=== PATIENT | female | born 1970 | race African-American/Black ===

== ENCOUNTER 2021-12-05 05:46 | Inpatient (IN) | payer OTHER ==
[2021-12-05 06:34] LABS: Hemoglobin 7.3 g/dL (12.0-16.0); Mean Corpuscular HGB CONC 31.2 g/dL (32.0-36.0); Mean Corpuscular Hemoglobin 35.6 pg (27.0-31.0); Mean Platelet Volume 8.5 fL (7.4-10.4); Platelet Count 348 thou/uL (130-400); RBC Distribution Width 18.3 % (11.5-14.5); Red Blood Cell (RBC) Count 2.06 mill/uL (4.20-5.40)
[2021-12-05 06:36] LABS: pH, Arterial 7.38 (7.35-7.45)
[2021-12-05 06:37] LABS: Actual Bicarbonate (HCO3a) 43.2 mEq/L (22-28); Analyzer IN Cardio ER; Base Excess (BEa) 15.7 mEq/L (-2.0 to +3.0); Calcium, Ionized (arterial) 1.12 mmol/L (1.12-1.30); Carboxyhemoglobin (COHb) 0.6 gm% (0.0-3.0); Hemoglobin (Hb) 8.6 g/dL (12.0-16.0); O2 Tension (PaO2), arterial 68.5 mmHg (80.0-100.0); Potassium - ABG Lab 3.26 mmol/L (3.70-5.30)
[2021-12-05 06:41] LABS: ALV-art Gradient 550.125 mmHg (0-20); CO2 Tension 75.5 mmHg (35.0-45.0); Puncture Site LRA
[2021-12-05] MEDS ORDERED: Acetaminophen 500 MG TAB ONE (06:50)
[2021-12-05 06:51] LABS: ALT (SGPT) 8 U/L (8-55); AST (SGOT) 14 U/L (5-34); Albumin 3.5 g/dL (3.5-5.0); Alkaline Phosphatase 123 U/L (40-110); BUN (Urea Nitrogen) 9 mg/dL (9.8-20.1); Bilirubin, Total 0.7 mg/dL (0.2-1.2); Calc. Creatinine Clearance 0 mL/min (70-130); Calcium 9.7 mg/dL (7.8-10.44); Globulin 5.2 g/dL (2.4-3.5); Glucose 436 mg/dL (70-105); Protein, Total 8.7 g/dL (6.0-8.3)
[2021-12-05 06:52] LABS: Anisocytosis SLIGHT = 6-15 cells (100X) (0-5/hpf); Band 21 % (5-11); Lymphocytes 14 % (21-51); MDiff Complete? YES; Macrocytosis MODERATE=16-30 cells (100X) (0-5/hpf); Monocytes 6 % (0-10); Neutrophil 59 % (42-75); Nucleated RBC 6 % (0); Polychromasia SLIGHT = 2-3 cells (100X) (0-2/hpf); Target Cells MODERATE= 6-15 cells (100X) (0-1/hpf); White Blood Cell (WBC) Count 7.3 thou/uL (4.8-10.8)
[2021-12-05 06:59] LABS: Chloride 82 mmol/L (98-107); Potassium 3.6 mmol/L (3.5-5.1); Sodium 134 mmol/L (136-145)
[2021-12-05 07:00] LABS: Anion Gap 21 mmol/L (10-20); Carbon Dioxide 34 mmol/L (22-29)
[2021-12-05] MEDS ORDERED: Insulin Regular 300 UNITS/3 ML VIAL ONE (07:11)
[2021-12-05] MEDS ORDERED: Vancomycin 1 GM/200 ML BAG ONE (07:11)
[2021-12-05] MEDS ORDERED: Cefepime 2 GM VIAL ONE (07:11)
[2021-12-05] MEDS ORDERED: Dextrose 5% in Water 1,000 ML IV PRN ×2 (07:51→08:50)
[2021-12-05] MEDS ORDERED: HumaLOG 300 UNITS/3 ML VIAL SC PRN ×2 (07:51→08:50)
[2021-12-05] MEDS ORDERED: Dextrose 50% Abboject 50 ML SYRINGE SLOW IVP PRN ×2 (07:51→08:50)
[2021-12-05] MEDS ORDERED: diphenhydrAMINE 50 MG/ML VIAL ONE (08:02)
[2021-12-05] MEDS ORDERED: Ondansetron PF 4 MG/2 ML Vial ONE (08:02)
[2021-12-05 08:03] LABS: Bacteria/HPF 4+ HPF (None Seen); Bilirubin Negative (Negative); Blood, Urine 2+ (Negative); Glucose, Urine (Dipstick) Greater than 1000 mg/dL (Negative); Ketone, Urine Trace mg/dL (Negative); Leukocyte 500 Leu/uL (Negative); Nitrite 2+ (Negative); Protein, Urine (Dipstick) 30 mg/dL (Neg-Trace); Specific Gravity, Urine 1.015 (1.002-1.036); Squamous Epithelial 0-3 HPF (0-3); WBC/HPF Greater than 50 HPF (0-3)
[2021-12-05 08:06] LABS: Clarity Turbid (Clear)
[2021-12-05 08:32] LABS: SARS-CoV-2 NAA Rapid Test Not Detected (NotDetected)
[2021-12-05] MEDS ORDERED: Propofol 1,000 MG/100 ML VIAL IV ONE (08:38)
[2021-12-05] MEDS ORDERED: Norepinephrine 8 MG/0.9% NS 250 ML ONE (08:38)
[2021-12-05] MEDS ORDERED: Midazolam HCl 2 mg/2 ml Vial ONE (08:38)
[2021-12-05 08:44] LABS: INR-International Normal Ratio 1.2; PTT 35.2 sec (22.9-36.1); Prothrombin Time 15.5 sec (12.0-14.7)
[2021-12-05] MEDS ORDERED: Ondansetron PF 4 MG/2 ML Vial IVP PRN (08:50)
[2021-12-05] MEDS ORDERED: Sodium Chloride 0.9% 1,000 ML IV SCH (09:00)
[2021-12-05] MEDS ORDERED: methylPREDNISolone Sod Succ 40 MG VIAL IVP SCH ×3 (09:00→17:00)
[2021-12-05] MEDS ORDERED: Enoxaparin Sodium 40 MG/0.4 ML SYRINGE SC SCH (09:00)
[2021-12-05 09:10] LABS: Actual Bicarbonate (HCO3a) 39.5 mEq/L (22-28); Base Excess (BEa) 12.9 mEq/L (-2.0 to +3.0); CO2 Tension 71.4 mmHg (35.0-45.0); Calcium, Ionized (arterial) 1.12 mmol/L (1.12-1.30); Carboxyhemoglobin (COHb) 1.2 gm% (0.0-3.0); Hemoglobin (Hb) 6.2 g/dL (12.0-16.0); O2 Tension (PaO2), arterial 66.7 mmHg (80.0-100.0); Potassium - ABG Lab 3.44 mmol/L (3.70-5.30); Puncture Site RBA; pH, Arterial 7.36 (7.35-7.45)
[2021-12-05 09:49] VITALS: BMI 33.8
[2021-12-05 10:03] LABS: Hemoglobin A1c 6.7 % (4.0-6.0)
[2021-12-05 10:20] LABS: Troponin I 0.038 ng/mL (< 0.028)
[2021-12-05] MEDS ORDERED: Norepinephrine 8 MG/0.9% NS 250 ML IVPB SCH (10:30)
[2021-12-05] MEDS ORDERED: Vancomycin HCl 1.5 GM in Sodium Chloride 0.9% 250 ML 300 ML IVPB SCH ×2 (11:00→21:00)
[2021-12-05] MEDS ORDERED: Azithromycin 500 MG in Sodium Chloride 0.9% 250 ML 250 ML IVPB SCH (11:00)
[2021-12-05] MEDS: Fentanyl 100 MCG/2 ML VIAL SLOW IVP PRN ×2 (11:18→15:46)
[2021-12-05 13:19] LABS: Troponin I 0.025 ng/mL (< 0.028)
[2021-12-05] MEDS ORDERED: CEFEPIME HCL IN DEXTROSE 5 % 1 GM/50 ML BAG IVPB SCH (15:00)
[2021-12-05] MEDS ORDERED: Cefepime 1 GM in Sodium Chloride 0.9% 100 ML IVPB SCH (15:00)
[2021-12-05] MEDS ORDERED: cefTRIAXone\\ROCEPHIN 2 GM in Sodium Chloride 0.9% 100 ML IVPB SCH (16:00)
[2021-12-05 16:13] LABS: Lactic Acid 3.8 mmol/L (0.5-2.2)
[2021-12-05 17:06] VITALS: TEMP 98.5
== END 2021-12-05 18:27 | disposition short-term general hospital (02) | DRG 811 ==
LOC: ERS 05:46 → SUATTDRO 05:46 → CCU 07:55
PROVIDERS: ADMIT Internal Medicine; ATTEND Internal Medicine
PROC: 5A09357 Assistance with Respiratory Ventilation, Less than 24 Consecutive Hours, Continuous Positive Airway Pressure (ICD-10-PCS; principal; 2021-12-05)
DX: D57.01 Hb-SS disease with acute chest syndrome (principal); J18.9 Pneumonia, unspecified organism; J96.21 Acute and chronic respiratory failure with hypoxia; J96.22 Acute and chronic respiratory failure with hypercapnia; J44.0 Chronic obstructive pulmonary disease with (acute) lower respiratory infection; J44.1 Chronic obstructive pulmonary disease with (acute) exacerbation; Z20.822 Contact with and (suspected) exposure to COVID-19; E11.65 Type 2 diabetes mellitus with hyperglycemia; E66.01 Morbid (severe) obesity due to excess calories; Z99.81 Dependence on supplemental oxygen; Z86.718 Personal history of other venous thrombosis and embolism; Z79.01 Long term (current) use of anticoagulants; Z79.899 Other long term (current) drug therapy; Z90.49 Acquired absence of other specified parts of digestive tract; Z68.33 Body mass index [BMI] 33.0-33.9, adult
CPT/HCPCS: 36416; 36600; 71045; 80053; 81003; 81015; 82010; 82805; 83021; 83036; 83605; 83880; 84145; 84484; 85025; 85046; 85610; 85730; 86850; 86870; 86900; 86901; 87040; 87086; 87149; 93005; 93306; 94640; 94660; J0456; J0692; J1200; J1815; J2250; J2405; J2704; J2920; J3010; J3370; J3490; J7050; J7620; U0002

== ENCOUNTER 2025-08-24 20:01 | Emergency (ER) | payer OTHER ==
[2025-08-24 22:27] LABS: Acetaminophen Less than 10 mcg/mL (Less than 10); Salicylate Less than 8.0 mg/dL (Less than 8.0)
[2025-08-24 22:29] LABS: ALT (SGPT) 8 U/L (Less than 34); AST (SGOT) 32 U/L (11-34); Albumin 2.9 g/dL (3.1-4.5); Alkaline Phosphatase 105 U/L (40-110); Anion Gap 10 mmol/L (10-20); BUN (Urea Nitrogen) 9 mg/dL (9.8-20.1); Bilirubin, Total 0.6 mg/dL (0.3-1.2); Calc. Creatinine Clearance 0 mL/min (70-130); Calcium 8.7 mg/dL (7.8-10.44); Carbon Dioxide 37 mmol/L (22-29); Chloride 95 mmol/L (98-107); Globulin 5.4 g/dL (2.4-3.5); Glucose 179 mg/dL (70-105); Potassium 3.4 mmol/L (3.5-5.1); Sodium 139 mmol/L (136-145)
[2025-08-24 22:36] LABS: Hematocrit 23.8 % (36.0-47.0); Hemoglobin 7.1 g/dL (12.0-16.0); Mean Corpuscular Hemoglobin 31.3 pg (27.0-31.0); Mean Corpuscular Volume 104.8 fL (78.0-98.0); Platelet Count 201 10x3/uL (130-400); Red Blood Cell (RBC) Count 2.27 mill/uL (4.20-5.40); White Blood Cell (WBC) Count 8.23 10x3/uL (4.8-10.8)
[2025-08-24 23:29] LABS: Anisocytosis SLIGHT = 6-15 cells HPF (0-5); Macrocytosis SLIGHT = 6-15 cells HPF (0-5); Nucleated RBC (Manual Ct) 9 % (0); Platelet Adequacy Comment Platelets Normal; Polychromasia SLIGHT = 2-3 cells HPF (0-2); Stomatocytes SLIGHT = 2-5 cells HPF (0-1); Target Cells SLIGHT = 2-5 cells HPF (0-1)
[2025-08-24 23:32] LABS: Bacteria/HPF 2+ HPF (None Seen); CAUTI Indications for Culture Dysuria,urgency,freq; Glucose, Urine (Dipstick) Normal (Negative); Leukocyte 250 Leu/uL (Negative); Protein, Urine (Dipstick) 10 mg/dL (Neg-Trace); RBC/HPF 0-3 HPF (0-3); Specific Gravity, Urine 1.009 (1.002-1.036)
[2025-08-24 23:33] LABS: Urine Culture Reflex Yes Yes
[2025-08-24 23:37] LABS: Cocaine Metabolite Screen Negative (Negative); THC/Cannabinoid Screen Negative (Negative); Tricyclic Screen PRELIM POSITIVE (Negative)
[2025-08-25] MEDS ORDERED: Acetaminophen 325 MG TAB PO PRN (02:38)
[2025-08-25] MEDS ORDERED: Ondansetron PF 4 MG/2 ML Vial IVP PRN (02:38)
[2025-08-25] MEDS ORDERED: Enoxaparin 40 MG (0.4 mL) SYRINGE SC SCH (09:00)
== END 2025-08-25 06:10 | disposition short-term general hospital (02) ==
LOC: ERS 20:01 → ERHOLD 08-25 02:38 → UNDOADMIN 08-25 02:38 → UNDODISIN 08-25 06:10
DX: E87.4 Mixed disorder of acid-base balance (principal); R41.82 Altered mental status, unspecified; I27.20 Pulmonary hypertension, unspecified; E11.9 Type 2 diabetes mellitus without complications; J44.9 Chronic obstructive pulmonary disease, unspecified; Z79.4 Long term (current) use of insulin
CPT/HCPCS: 70450; 71045; 80053; 80306; 80307; 81001; 82805; 84443; 85025; 86850; 86870; 86900; 86901; 87077; 87086; 87186; 93005